=== PATIENT | female | born 1985 | race Caucasian/White ===

== ENCOUNTER 2021-03-25 14:49 | Emergency (ER) | payer OTHER, MEDICAID ==
[2021-03-25 15:06] VITALS: BP 161/98
[2021-03-25 15:44] LABS: BILIRUBIN,URINE NEGATIVE (NEGATIVE); GLUCOSE, URINE (UA) NEGATIVE (NEGATIVE); KETONES,URINE (UA) NEGATIVE (NEGATIVE); LEUKOCYTE ESTERASE, URINE NEGATIVE (NEGATIVE); NITRITE,URINE NEGATIVE (NEGATIVE); OCCULT BLOOD,URINE LARGE (NEGATIVE); PROTEIN,URINE 100 mg/dL (NEGATIVE); UROBILINOGEN,URINE 1 (NORMAL) E.U./dL (NORMAL)
[2021-03-25 15:50] LABS: CLARITY,URINE BLOODY (CLEAR)
[2021-03-25 16:01] LABS: HCG,QUALITATIVE BLOOD POSITIVE
[2021-03-25 16:16] LABS: BACTERIA,URINE Rare /HPF (None Seen); MUCUS,URINE Few Strands; RBC,URINE TNTC /HPF (0-5); SQUAMOUS EPITHELIAL CELL,UR MOD Squamous (<= Few)
--- NOTE | 2021-03-25 17:42 | Ultrasound Report ---
PROCEDURE: OB First Trimester INDICATIONS: 8 wks preg, bleed OUTSIDE/PRIOR DATING DATA: Last menstrual period (LMP): 01/22/2021.. LMP-based estimated date of delivery (TRINO): 10/31/2021. First dating scan (date and location): 03/25/19. Estimated date of delivery (TRINO) from first dating scan: Not applicable. TECHNIQUE: Real-time scanning was performed of the fetus and maternal pelvic organs, with image documentation. COMPARISON: None FINDINGS: Embryo: Anechoic focus noted in the endometrial cavity which may represent early intrauterine pregna ncy. Yolk sac is identified. No definite pole identified. Heart rate: Not detected Measurement variability in dating: +/- 4 weeks by LMP, +/- 7 days by mean sac diameter (use before 6 weeks gestation if crown-rump length not able to be measured), +/- 5 days by crown-rump length (6-12 weeks gestation). Maternal organs: Left ovary not visualized not evaluated. 1.9 cm thick-walled cyst noted in the right ovary may represent a corpus luteal cyst. IMPRESSION: Anechoic focus in the endometrial cavity which could represent gestational sac of early intrauterine , nonviable or occult ectopic . Recommend close clinical observation, cor relation with serial beta hCG and short-term follow-up obstetrical ultrasound in one week. Reviewed by: Marilee Wall MD, PhD on 03/25/2021 4:41 PM [facility] Approved by: Marilee Wall MD, PhD on 03/25/2021 4:41 PM [facility] Station ID: [id number]
--- NOTE | 2021-03-25 17:49 | Ultrasound Report ---
PROCEDURE: OB First Trimester INDICATIONS: 8 wks preg, bleed OUTSIDE/PRIOR DATING DATA: Last menstrual period (LMP): 01/22/2021.. LMP-based estimated date of delivery (TRINO): 10/31/2021. First dating scan (date and location): 03/25/19. Estimated date of delivery (TRINO) from first dating scan: Not applicable. TECHNIQUE: Real-time scanning was performed of the fetus and maternal pelvic organs, with image documentation. COMPARISON: None FINDINGS: Embryo: Anechoic focus noted in the endometrial cavity which may represent early intrauterine pregna ncy. Yolk sac is identified. No definite pole identified. Heart rate: Not detected Measurement variability in dating: +/- 4 weeks by LMP, +/- 7 days by mean sac diameter (use before 6 weeks gestation if crown-rump length not able to be measured), +/- 5 days by crown-rump length (6-12 weeks gestation). Maternal organs: Left ovary not visualized not evaluated. 1.9 cm thick-walled cyst noted in the right ovary may represent a corpus luteal cyst. IMPRESSION: Anechoic focus in the endometrial cavity which could represent gestational sac of early intrauterine , nonviable or occult ectopic . Recommend close clinical observation, cor relation with serial beta hCG and short-term follow-up obstetrical ultrasound in one week. Reviewed by: Marilee Wall MD, PhD on 03/25/2021 4:48 PM [facility] Approved by: Marilee Wall MD, PhD on 03/25/2021 4:48 PM [facility] Station ID: [id number]
--- NOTE | 2021-03-25 17:57 | ED Physician Documentation ---
History of Present Illness - Stated complaint Stated Complaint: FEMALE - Chief complaint Chief Complaint: General - History obtained from History obtained from: Patient - Additonal information Additional information: Patient comes to the emergency department with chief complaint of vaginal bleeding. She is around 8 weeks , she thinks, and states her last menstrual period was January 22. She states she had some cramping in her back when this first started 4 days ago, but is not having any pain now. She states she did has had very mild spotting that is mainly visible on the toilet paper when she wipes. She states she is barely getting any blood on the pad. The bleeding has not increased since it started initially. No clots. The patient states that her as far she knows has been healthy. She has not yet established with an CHROME POLISHER in the area. Patient has had 3 other pregnancies, 2 of which have gone to full-term, and 1 of which resulted in a first trimester miscarriage. Patient denies any other complaints at this time. Review of Systems Ten Systems: 10 systems reviewed and negative Constitutional: reports: Reviewed and negative Eyes: reports: Reviewed and negative Ears: reports: Reviewed and negative Nose: reports: Reviewed and negative Throat: reports: Reviewed and negative Cardiac: reports: Reviewed and negative Respiratory: reports: Reviewed and negative GI: reports: Reviewed and negative : reports: Vaginal bleeding, Now EGA Skin: reports: Reviewed and negative Musculoskeletal: reports: Reviewed and negative Neurologic: reports: Reviewed and negative Psychiatric: reports: Reviewed and negative Endocrine: reports: Reviewed and negative Immunocompromised: reports: Reviewed and negative PD PAST MEDICAL HISTORY - Allergies Allergies/Adverse Reactions: Allergies Allergy/AdvReac Type Severity Reaction Status Date / Time No Known Drug Allergies Allergy Verified 03/25/21 15:06 PD ED PE NORMAL - Vitals Vital signs reviewed: Yes - General General: Alert and oriented X 3, No acute distress, Well developed/nourished - HEENT HEENT: Atraumatic, PERRL, EOMI, Moist mucous membranes - Cardiac Cardiac: RRR, No murmur - Respiratory Respiratory: No respiratory distress, Clear bilaterally - Abdomen Abdomen: Soft, Non tender, Non distended - Female Female : Deferred - Derm Derm: Warm and dry - Extremities Extremities: No deformity - Neuro Neuro: Alert and oriented X 3 - Psych Psych: Normal mood, Normal affect Results - Vitals Vitals: Vital Signs - 24 hr 03/25/21 15:03 Temperature 36.7 C Heart Rate 77 Respiratory 14 Rate Blood Pressure 161/98 H O2 Saturation 100 Oxygen O2 Source Room air - Labs Labs: Laboratory Tests 03/25/21 03/25/21 03/25/21 15:16 15:18 15:25 Serum HCG, Qual POSITIVE HCG, Quant 16058.00 Urine Color RED/BLOODY Urine Clarity BLOODY Urine pH 7.0 Ur Specific [place] 1.025 Urine Protein 100 H Urine Glucose (UA) NEGATIVE Urine Ketones NEGATIVE Urine Occult Blood LARGE H Urine Nitrite NEGATIVE Urine Bilirubin NEGATIVE Urine Urobilinogen 1 (NORMAL) Ur Leukocyte Esterase NEGATIVE Urine RBC TNTC H Urine WBC 6-10 H Ur Squamous Epith Cells MOD Squamous H Urine Bacteria Rare Urine Mucus Few Strands Ur Microscopic Review INDICATED Urine Culture Comments NOT INDICATED - Rads (name of study) OB ultrasound Radiology: Prelim report reviewed, EMP read indepedently, See rad report (Gestational sac at just over 6 weeks age. No heartbeat detectable at this time. No adnexal masses. Corpus luteum cyst noted) PD MEDICAL DECISION MAKING - ED course Complexity details: reviewed results, re-evaluated patient, considered differential, d/w patient ED course: I discussed with the patient that her quantitative hCG is over 12,000 which is appropriate for her stage of . The patient's ultrasound shows a gestational sac just over 6 weeks without clear evidence of heartbeat with the fetus. At this point in time, I discussed with the patient that she will need serial studies to determine what is going on with her . It is possible that it is an early and needs more time to have a visible heart beat. As such, the patient should have a repeat ultrasound in no less than 1 week. I have also discussed with her that she may have a repeat hormone level in 3 days. The patient has been given contact information for women's clinic since she does not yet have her own [employer]ER. We have discussed the usual indications for return. Departure - Departure Disposition: 01 Home, Self Care Clinical Impression: Threatened miscarriage in early Condition: Stable Instructions: ED Miscarriage Poss Comments: Your hormones look good, and are at an appropriate level for the stage of uterine. Your ultrasound shows a sac in early findings of the fetus which are measuring around 6 weeks. No heartbeat was visible today. It is not clear whether this is because your is very early and needs more time to develop, or whether the has arrested and you are about to have a miscarriage. Only time will tell for sure. The 2 ways we evaluate this are to recheck your hormones serially and to repeat an ultrasound. Your hormone should be checked in 3 days or more from now to determine whether they are rising appropriately. Your ultrasound should be repeated in about 1 week to allow enough time for development of the fetus. Since you are still getting established with a an [employer]ER here, you are welcome to follow-up in our women's clinic here at would be if you wish. Otherwise, since we do know that your is in the uterus and that it is not a tubal , it is acceptable for you to just wait until you get established with your permanent [employer]OME POL[employer]ER. If you begin to bleed heavily and have cramping, then it is almost certainly a miscarriage.
== END 2021-03-25 18:33 | disposition home or self-care (01) ==
LOC: ED 14:49
DX: O20.0 Threatened abortion (principal); Z3A.01 Less than 8 weeks gestation of pregnancy
CPT/HCPCS: 36415; 81001; 81003; 84702; 84703; 87086; 99283; 99284

== ENCOUNTER 2021-03-26 14:20 | Emergency (ER) | payer OTHER, MEDICAID ==
[2021-03-26] MEDS ORDERED: HYDROcod/ACETAM 5/325 MG TABLET PO STA (14:41)
[2021-03-26] MEDS ORDERED: MORPHINE 2 MG/ML CARPUJECT IM STA (14:41)
--- NOTE | 2021-03-26 14:47 | ED Physician Documentation ---
History of Present Illness - Stated complaint Stated Complaint: ABD PX - Chief complaint Chief Complaint: Abd Pain - History obtained from History obtained from: Patient - History of Present Illness Pain level max: 8 Pain level now: 8 - Additonal information Additional information: Patient is a 35-year-old female who presents to the emergency department complaint of increasing vaginal bleeding and cramping since yesterday. She was seen here yesterday and diagnosed with likely miscarriage. She is scheduled to have a repeat hCG in 3 days and a repeat ultrasound in 1 week. She states today has increased pelvic cramping and increased bleeding. She did not take anything for pain prior to coming in. She states that she came in for pain control. No vomiting. No diarrhea. No constipation. Nothing makes it better or worse. Patient is a 4 para 2. Review of Systems Constitutional: denies: Fever, Chills GI: denies: Vomiting, Diarrhea Skin: denies: Rash Musculoskeletal: denies: Neck pain, Back pain Neurologic: denies: Headache PD PAST MEDICAL HISTORY - Past Medical History Past Medical History: No - Present Medications Home Medications: Ambulatory Orders Medication Instructions Recorded Confirmed HYDROcod/ACETAM 5/325 [[place] 5/325] 1 - 2 ea PO Q6H PRN #14 tablet 03/26/21 - Allergies Allergies/Adverse Reactions: Allergies Allergy/AdvReac Type Severity Reaction Status Date / Time morphine AdvReac Emesis Verified 03/26/21 14:58 - Living Situation Living Arrangement: reports: At home - Social History Does the pt have substance abuse?: No - Family History Family history: reports: Non contributory PD ED PE NORMAL - Vitals Vital signs reviewed: Yes - General General: Alert and oriented X 3, No acute distress, Well developed/nourished - HEENT HEENT: PERRL, Moist mucous membranes - Neck Neck: Supple, no meningeal sign - Cardiac Cardiac: RRR, Strong equal pulses - Respiratory Respiratory: No respiratory distress, Clear bilaterally - Abdomen Abdomen: Soft, Non tender, Non distended, Other (No peritoneal signs) - Derm Derm: Warm and dry - Extremities Extremities: No edema, No calf tenderness / cord - Neuro Neuro: Alert and oriented X 3 - Psych Psych: Normal mood, Normal affect Results - Vitals Vitals: Vital Signs - 24 hr 03/26/21 14:30 Temperature 37 C Heart Rate 81 Respiratory 20 Rate Blood Pressure 159/111 H O2 Saturation 99 Oxygen O2 Source Room air PD MEDICAL DECISION MAKING - ED course Complexity details: reviewed results, re-evaluated patient, considered differential, d/w patient ED course: Patient appears to be having a miscarriage. We will have her follow-up with her doctor for repeat hCG and repeat ultrasound in 1 week. The hCG should be done in about 3 days. Pain well controlled here. I am prescribing a short course of short-acting opioid pain medication for this patient. I have reviewed the patients ENGINE SETTER and no concerning findings were noted. I have discussed that the opioids are for short term therapy only, and will not be refilled from the ED. no evidence of ectopic . No peritoneal signs. Patient counseled regarding signs and symptoms for which I believe and urgent re-evaluation would be necessary. Patient with good understanding of and agreement to plan and is comfortable going home at this time This document was made in part using voice recognition software. While efforts are made to proofread this document, sound alike and grammatical errors may occur. Departure - Departure Disposition: 01 Home, Self Care Clinical Impression: Threatened miscarriage in early Condition: Good Instructions: ED Miscarriage Poss Follow-Up: [facility] [Provider Group] - Within 3 Days Prescriptions: HYDROcod/ACETAM 5/325 [[place] 5/325] 1 - 2 ea PO Q6H PRN #14 tablet PRN Reason: Pain Comments: You can use the Vicodin as needed for pain. Return if you worsen. Follow-up with your doctor for repeat hCG within 3 days. They may want to repeat an ultrasound next week as well. Return if your pain is not controlled. Your prescription was sent to [facility] in [place]. I am prescribing a short course of narcotic pain medication for you. These are potentially dangerous and addictive medications that should be used carefully. These medications may constipate you. Take an knky-lbk-xnidvms stool softener (docusate) twice daily with plenty of water while taking these medications. If you go 24 hours without a bowel movement, take [id number]-[id number] miralax, per package instructions. Do not drink or drive while taking these medications. If you received narcotic or sedating medications while in the emergency department, do not drive for 24 hours. Store this medication in a safe, secure place and out of reach of children. It is a violation of federal law to give or sell this medication to another person or to use in a manner other than prescribed. The ED will not refill narcotic prescriptions, including prescriptions lost or stolen. To dispose of unwanted medications: 1. [facility] at [address] in [place] has a medication drop box. They accept prescription medications (in pill form) Monday through Monday 9:00 a.m. to 5:00 p.m. 2. The [facility] [employer] accepts prescription medications (in pill form only) for disposal year round. Call for more information. 3. Contact the [facility] for the next [facility] sponsored prescription drug collection event. , [phone], or [phone];
[2021-03-26 15:31] VITALS: BP 149/100
== END 2021-03-26 15:31 | disposition home or self-care (01) ==
LOC: ED 14:20
DX: O20.0 Threatened abortion (principal); Z3A.01 Less than 8 weeks gestation of pregnancy
CPT/HCPCS: 99282; A9270

== ENCOUNTER 2021-03-27 07:51 | Emergency (ER) | payer OTHER, MEDICAID ==
--- NOTE | 2021-03-27 08:07 | ED Physician Documentation ---
PD HPI FEMALE - Stated complaint Stated Complaint: DIZZY/NAUSEA - Chief complaint Chief Complaint: Abd Pain - History obtained from History obtained from: Patient - History of Present Illness Timing - onset: How many days ago (5-6) Timing - duration: Days (5-6) Timing - details: Gradual onset (Onset of some crampy lower abdominal pain associated with some mild vaginal bleeding 5 to 6 days ago that has increased the last 2 days. Using 5-6 pads a day but also clots when she urinates and sits on the toilet. Crampy pain, severe at times.), Still present, Waxing and waning Associated symptoms: Pelvic pain, Vaginal bleeding. 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 Seen yesterday with cramps still.) Review of Systems Constitutional: denies: Fever, Chills Nose: denies: Rhinorrhea / runny nose, Congestion Throat: denies: Sore throat Respiratory: denies: Cough GI: reports: Abdominal Pain, Nausea. denies: Vomiting, Diarrhea : reports: LMP (8 weeks ago), Vaginal bleeding, Missed period. denies: Dysuria, Frequency, Discharge Neurologic: denies: Generalized weakness, Focal weakness, Numbness, Near syncope (but feeling lightheaded with standing.) PD PAST MEDICAL HISTORY - Past Medical History Cardiovascular: None Respiratory: None Neuro: Tremors Endocrine/Autoimmune: None - Present Medications Home Medications: Ambulatory Orders Medication Instructions Recorded Confirmed HYDROcod/ACETAM 5/325 [[place] 5/325] 1 - 2 ea PO Q6H PRN #14 tablet 03/26/21 Ondansetron Odt [Zofran] 4 mg TL Q6H PRN #15 tablet 03/27/21 - Allergies Allergies/Adverse Reactions: Allergies Allergy/AdvReac Type Severity Reaction Status Date / Time morphine AdvReac Emesis Verified 03/27/21 08:00 - Social History Does the pt smoke?: No Smoking Status: Never smoker Does the pt have substance abuse?: No PD ED PE NORMAL - Vitals Vital signs reviewed: Yes - General General: Alert and oriented X 3, Well developed/nourished - Cardiac Cardiac: RRR, No murmur - Respiratory Respiratory: Clear bilaterally - Abdomen Abdomen: Normal bowel sounds, Soft, Non distended, No organomegaly, Other (mild tender suprapubic area without rebound nor percussion tender. ) - Female Female : Deferred - Back Back: No CVA TTP - Derm Derm: Normal color, Warm and dry - Neuro Neuro: Alert and oriented X 3, No motor deficit, Normal speech Results - Vitals Vitals: Vital Signs - 24 hr 03/27/21 03/27/21 03/27/21 07:55 09:59 11:00 Temperature 36.5 C Heart Rate 77 66 69 Respiratory 17 19 16 Rate Blood Pressure 132/77 H 122/78 124/75 O2 Saturation 98 100 100 03/27/21 12:02 Temperature Heart Rate 73 Respiratory 19 Rate Blood Pressure 125/83 H O2 Saturation 98 Oxygen O2 Source Room air - Labs Labs: Laboratory Tests 03/27/21 03/27/21 03/27/21 09:02 09:02 09:02 WBC 5.3 RBC 4.15 L Hgb 11.6 L Hct 35.7 L MCV 86.0 MCH 28.0 MCHC 32.5 RDW 13.4 Plt Count 271 MPV 10.0 Neut # (Auto) 3.6 Lymph # (Auto) 1.[address] [place] # (Auto) 0.5 Eos # (Auto) 0.1 Baso # (Auto) 0.1 Absolute Nucleated RBC 0.00 Nucleated RBC % 0.0 Sodium 135 Potassium 3.9 Chloride 103 Carbon Dioxide 23 Anion Gap 9.0 BUN 12 Creatinine 0.7 Estimated GFR (MDRD) 96 Glucose 124 H Calcium 8.6 Total Bilirubin 0.6 AST 139 H ALT 113 H Alkaline Phosphatase 65 Total Protein 6.8 Albumin 3.9 Globulin 2.9 Albumin/Globulin Ratio 1.3 Lipase 23 HCG, Quant 6759.00 PD MEDICAL DECISION MAKING - ED course Complexity details: reviewed old records (U/S and labs from 2 days ago. Prior ED reports.), reviewed results (HCG down to 6K from 12 K over 2 days c/w nonviable . ), re-evaluated patient (opted for continued clinical treatment and not D&C at this point. ), considered differential, d/w patient, d/w sediment remediation consultant (Dr. Rivera DIRECTOR [employer] carton lettering machine operator, who came to ED and talked with the patient. ) Departure - Departure Disposition: 01 Home, Self Care Clinical Impression: Incomplete miscarriage, Lower abdominal pain Nausea & vomiting Qualifiers: Vomiting type: unspecified Qualified Code(s): R11.2 - Nausea with vomiting, unspecified Condition: Stable Instructions: ED Miscarriage Incom Follow-Up: Jared Rivera MD [Provider Admit Priv/Credential] - Prescriptions: Ondansetron Odt [Zofran] 4 mg TL Q6H PRN #15 tablet PRN Reason: Nausea / Vomiting Comments: Frequent fluids and maintain good hydration. Use some anti-inflammatory such as ibuprofen or naproxen 2-3 gvrv-nqs-[id number] tablets 3 times daily for the next several days to week. To that add Tylenol or pain medicines if needed. Use ondansetron if needed for nausea. Follow-up with DIRECTOR COUNCIL ON AGING if not resolved over the next several days and return if worsening. Discharge Date/Time: 03/27/21 12:05
[2021-03-27] MEDS ORDERED: ONDANSETRON 4 MG/2 ML VIAL IVP STA (08:19)
[2021-03-27] MEDS ORDERED: KETOROLAC 30 MG/ML VIAL IVP STA (08:20)
[2021-03-27] MEDS ORDERED: HYDROmorphone 0.5 MG/0.5 ML SYRINGE IVP STA (08:21)
[2021-03-27] MEDS ORDERED: SODIUM CHLORIDE 0.9% 1,000 ML IV STA (08:21)
[2021-03-27 09:10] LABS: BASOPHILS # (AUTO) 0.1 10^3/uL (0.0-0.1); BASOPHILS % (AUTO) 0.9 %; EOSINOPHILS # (AUTO) 0.1 10^3/uL (0.0-0.7); EOSINOPHILS % (AUTO) 2.2 %; HCT - HEMATOCRIT 35.7 % (37.0-47.0); HGB - HEMOGLOBIN 11.6 g/dL (12.0-16.0); LYMPHOCYTES # (AUTO) 1.1 10^3/uL (1.5-3.5); LYMPHOCYTES % (AUTO) 19.7 %; MEAN CORPUSCULAR HGB CONC 32.5 g/dL (32.0-36.0); MONOCYTES # (AUTO) 0.5 10^3/uL (0.0-1.0); MONOCYTES % (AUTO) 10.1 %; NEUTROPHILS # (AUTO) 3.6 10^3/uL (1.5-6.6); NEUTROPHILS % (AUTO) 66.7 %; PLT - PLATELET COUNT 271 10^3/uL (130-450); RED BLOOD COUNT 4.15 10^6/uL (4.20-5.40); RED CELL DISTRIBUTION WIDTH 13.4 % (12.0-15.0); WHITE BLOOD COUNT 5.3 x10^3/uL (4.8-10.8)
[2021-03-27 09:27] LABS: ALBUMIN 3.9 g/dL (3.2-5.5); ALBUMIN/GLOBULIN RATIO 1.3 (1.0-2.2); BILIRUBIN,TOTAL 0.6 mg/dL (0.2-1.0); CALCIUM 8.6 mg/dL (8.5-10.3); CREATININE 0.7 mg/dL (0.4-1.0); POTASSIUM 3.9 mmol/L (3.5-5.0); TOTAL PROTEIN 6.8 g/dL (6.7-8.2)
--- NOTE | 2021-03-27 11:44 | CONSULTATION NOTE ---
Surgery Consult - Consult Date Consult Date: 03/27/21 Requesting Provider: Dr. Parker - Chief Complaint Chief Complaint: Vaginal Bleeding - Home Meds/Allergies Allergies/Adverse Reactions: Allergies Allergy/AdvReac Type Severity Reaction Status Date / Time morphine AdvReac Emesis Verified 03/27/21 08:00 - Vital Signs Vital Signs: Last Vital Signs Temp 97.7 F 03/27/21 07:55 Pulse 69 03/27/21 11:00 Resp 16 03/27/21 11:00 BP 124/75 03/27/21 11:00 Pulse Ox 100 03/27/21 11:00 Intake & Output: Intake & Output 03/24/21 03/25/21 03/26/21 03/27/21 23:59 23:59 23:59 23:59 Intake Total 1000 Balance 1000 - Lab Results Result Diagrams: 03/27/21 09:02 03/27/21 09:02 - Consultation Note Consultation Note: Subjective: Patient is a 35-year-old presenting with vaginal bleeding that started 5 days ago. She was seen 2 days ago and again yesterday for vaginal bleeding. She had an hCG at that time of 12,896. Bleeding has been fairly consistent, but not saturating pads. She changes these due to comfort. She has intermittent pain, this was quite significant yesterday, this essentially subsided overnight, then picked up again this morning. Upon arrival to the ER, she has been doing much better, although she did receive 1 dose of hydromorphone approximately 4 hours ago. She has come to terms with her miscarriage, she says she knows that this is passing. She has had 1 prior D&C for a missed and wants to avoid interventions at this time. Not using contraception at this time, and is unsure what she wants, although hesitant about getting another IUD. OB history 1. 2007: Term , male, section 2. 2016: Missed with D&C 32020: Term , female, section Past medical history Pineal cyst Ovarian cyst Past surgical history section x2 Pineal cyst removal Laparoscopic cholecystectomy Family history Noncontributory Social history Denies Objective: Exam Constitutional: alert, no acute distress, well hydrated, well developed, well nourished, appropriate dress. Skin: normal turgor, normal color. Head: atraumatic, normocephalic. Cardiovascular: RRR. Respiratory: no respiratory distress. Abdomen: Soft, non tender Spine: normal mobility. Neurologic: normal, sensation intact, motor intact. Psych: affect and mood appropriate, normal interaction, good eye contact. Pelvic: Declined Labs: HCG 6,000 today down from 12,000 yesterday Assement and Plan: 35-year-old with a threatened . 1. Threatened -Likely inevitable, but declined pelvic exam today. -Declined medical or surgical intervention. -Discussed that with her ongoing bleeding and fall in HCG, this is almost certainly a failed , although I cannot say for certain. Too early for repeat ultrasound. She says she knows it is a miscarriage and is not worried about harming the at this point since it is resolving. -Will manage with ibuprofen for pain relief. -Has an appointment in approximately one week with [facility]. Can take urine test prior to this and she may be negative/ -[facility] to check in if unable to establish with [facility]. Provided patient with phone number. -bleeding precautions given. 2. Contraceptive counselling -Likely desires permanent sterility, but considering vasectomy vs tubal sterilization. 3. Rh negative -Partner also Rh negative. Declined need for rh prophylaxis. Likely unneeded this early in .
[2021-03-27 12:02] VITALS: BP 125/83
== END 2021-03-27 12:05 | disposition home or self-care (01) ==
LOC: ED 07:51
DX: O03.4 Incomplete spontaneous abortion without complication (principal); Z3A.01 Less than 8 weeks gestation of pregnancy; Z30.09 Encounter for other general counseling and advice on contraception; Z67.91 Unspecified blood type, Rh negative
CPT/HCPCS: 36415; 80053; 83690; 84702; 85025; 96361; 96374; 99283; 99284; J1170

== ENCOUNTER 2022-10-07 20:21 | Emergency (ER) | payer OTHER ==
[2022-10-07 20:29] VITALS: BP 160/90
--- NOTE | 2022-10-07 21:10 | ED Physician Documentation ---
History of Present Illness - Stated complaint Stated Complaint: LT FOOT SWOLLEN - Chief complaint Chief Complaint: Ext Problem - History obtained from History obtained from: Patient - Additonal information Additional information: HPI from patient. Patient complains of atraumatic left leg swelling and pain, paresthesias. Gradual onset since yesterday morning when she first noticed swelling limited to her foot and ankle. Over the ensuing timeframe, she has noted gradual spread of the swelling paresthesias to the level of her knee. Denies history of similar symptoms. Denies chest pain, shortness of breath. Does not use control, no recent long car/plane trips. Review of Systems Constitutional: denies: Fever Cardiac: denies: Chest pain / pressure Respiratory: denies: Dyspnea Skin: denies: Rash Musculoskeletal: reports: Extremity pain, Extremity swelling. 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" - Past Surgical History Past Surgical History: Yes General: Cholecystectomy /J[employer]CHITECT: section, Dilation and currettage - Allergies Allergies/Adverse Reactions: Allergies Allergy/AdvReac Type Severity Reaction Status Date / Time morphine AdvReac Emesis Verified 10/07/22 20:23 - Social History Does the pt smoke?: No Smoking Status: Former smoker Does the pt have substance abuse?: No PD ED PE NORMAL - Vitals Vital signs reviewed: Yes - General General: Alert and oriented X 3, No acute distress, Well developed/nourished - Derm Derm: Normal color, Warm and dry, No rash PD ED PE EXPANDED - Extremities Extremities: Pedal edema L (1+ pitting edema most prominent in left foot, ankle, distal left lower extremity) Results - Vitals Vitals: Oxygen O2 Source Room air - Rads (name of study) LLE doppler US Relevant Findings:: Prelim report reviewed, See rad report PD Medical Decision Making - ED course Complexity details: reviewed results, re-evaluated patient, considered differential, d/w patient ED course: Atraumatic LLE swelling, paresthesias. NVI on exam. LLE US without abnormality, specifically no evidence of DVT. She is in NAD; further emergent testing not indicated at this time. Results d/w patient, return precautions reviewed, advised to seek follow up with PMD for reevaluation. Departure - Departure Disposition: 01 Home, Self Care Clinical Impression: Peripheral edema Condition: Good Instructions: ED Leg Swelling Unilateral Comments: There were no abnormalities on tonight's ultrasound of your left leg; specifically, no evidence of blood clot (DVT). The cause of your leg swelling is not apparent at this time. Contact your primary care provider's office on Monday when they open to arrange for next available appointment for reevaluation; further testing, at your primary care provider's discretion, might be needed. Forms: PCP List Discharge Date/Time: 10/07/22 22:07
--- NOTE | 2022-10-07 22:56 | Ultrasound Report ---
PROCEDURE: Duplex Ext Veins Left INDICATIONS: LLE swelling TECHNIQUE: Real-time imaging, as well as color and pulse Doppler interrogation, were performed of the lower extr emity deep veins from the inguinal ligament to the popliteal fossa. COMPARISON: None. FINDINGS: The deep veins are normally compressible, and free of intraluminal thrombus. Color and pu lse Doppler demonstrate normal phasic intraluminal flow. There is normal augmentation response to di stal compression maneuver. IMPRESSION: 1. No evidence of deep venous thrombosis in the left lower extremity. Reviewed by: Edy Ghosh MD on 10/07/2022 10:55 PM PDT Approved by: Edy Ghosh MD on 10/07/2022 10:55 PM PDT Station ID: [id number]
== END 2022-10-07 22:07 | disposition home or self-care (01) ==
LOC: ED 20:21
DX: R60.0 Localized edema (principal); Z87.891 Personal history of nicotine dependence
CPT/HCPCS: 99283; 99284

== ENCOUNTER 2023-09-17 06:07 | Emergency (ER) | payer OTHER ==
[2023-09-17] MEDS: SODIUM CHLORIDE 0.9% 1,000 ML IV STA (06:30)
[2023-09-17 06:42] LABS: BASOPHILS % (AUTO) 0.8 %; EOSINOPHILS # (AUTO) 0.3 10^3/uL (0.0-0.7); HCT - HEMATOCRIT 37.1 % (37.0-47.0); HGB - HEMOGLOBIN 11.6 g/dL (12.0-16.0); LYMPHOCYTES # (AUTO) 1.1 10^3/uL (1.5-3.5); LYMPHOCYTES % (AUTO) 21.9 %; MEAN CORPUSCULAR HEMOGLOBIN 26.4 pg (27.0-31.0); MEAN CORPUSCULAR HGB CONC 31.3 g/dL (32.0-36.0); MEAN CORPUSCULAR VOLUME 84.5 fL (81.0-99.0); MEAN PLATELET VOLUME 10.4 fL (7.9-10.8); MONOCYTES # (AUTO) 0.4 10^3/uL (0.0-1.0); MONOCYTES % (AUTO) 9.1 %; PLT - PLATELET COUNT 271 10^3/uL (130-450); RED BLOOD COUNT 4.39 10^6/uL (4.20-5.40); WHITE BLOOD COUNT 4.8 x10^3/uL (4.8-10.8)
[2023-09-17 06:43] LABS: BILIRUBIN,URINE SMALL (NEGATIVE); GLUCOSE, URINE (UA) NEGATIVE (NEGATIVE); KETONES,URINE (UA) >=80 mg/dL (NEGATIVE); LEUKOCYTE ESTERASE, URINE TRACE (NEGATIVE); NITRITE,URINE NEGATIVE (NEGATIVE); OCCULT BLOOD,URINE TRACE-INTA (NEGATIVE); PROTEIN,URINE NEGATIVE (NEGATIVE); UROBILINOGEN,URINE 0.2 (NORMAL) E.U./dL (NORMAL)
[2023-09-17 06:48] LABS: CLARITY,URINE CLEAR (CLEAR)
[2023-09-17 06:49] LABS: HCG UR QUAL NEGATIVE
[2023-09-17 06:53] LABS: RBC,URINE 0-5 /HPF (0-5); WBC,URINE 0-3 /HPF (0-5)
[2023-09-17 06:54] LABS: BACTERIA,URINE None Seen /HPF (None Seen); SQUAMOUS EPITHELIAL CELL,UR MOD Squamous (<= Few)
[2023-09-17 07:00] LABS: ALBUMIN 4.3 g/dL (3.2-5.5); ALBUMIN/GLOBULIN RATIO 1.3 (1.0-2.2); BILIRUBIN,TOTAL 0.7 mg/dL (0.2-1.0); CALCIUM 9.7 mg/dL (8.5-10.3); CREATININE 0.7 mg/dL (0.6-1.3); POTASSIUM 3.9 mmol/L (3.5-4.5); TOTAL PROTEIN 7.7 g/dL (6.4-8.9)
--- NOTE | 2023-09-17 07:31 | ED Physician Documentation ---
PD HPI ABD PAIN - Stated complaint Stated Complaint: ABD PX/POST SURGERY - Chief complaint Chief Complaint: Abd Pain - History obtained from History obtained from: Patient - History of Present Illness Timing - onset: How many weeks ago (1) Timing - duration: Weeks (1) Timing - details: Gradual onset (had pain abd post surgery a week ago, which was expected, but has continued to same degree still. Was expecting a decrement in pain intensity. No fevers, wound infections, distention, nausea, diarrhea.), Still present Quality: Cramping, Aching, Pain Location: Epigastric, LUQ, LLQ Radiation: No: Chest, Left flank Worsened by: Moving, Palpation Associated symptoms: Nausea. 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 - Present Medications Home Medications: Ambulatory Orders Medication Instructions Recorded Confirmed Docusate Sodium 100Mg Capsule 100 mg PO DAILY #20 cap 09/17/23 [Colace 100Mg Capsule] Omeprazole Magnesium 20 mg PO QPM 09/17/23 09/17/23 Ondansetron Odt [Zofran Odt] 4 mg PO Q8HR PRN 09/17/23 09/17/23 Oxycodone HCl/Acetaminophen 1 each PO Q6H #20 tablet 09/17/23 [Percocet 10-325 mg Tablet] methocarbamoL [Methocarbamol] 500 mg PO QID PRN 09/17/23 09/17/23 oxyCODONE [Roxicodone] 5 mg PO Q8HR PRN 09/17/23 09/17/23 - Allergies Allergies/Adverse Reactions: Allergies Allergy/AdvReac Type Severity Reaction Status Date / Time morphine AdvReac Emesis Verified 09/17/23 06:20 - Social History Does the pt smoke?: No Smoking Status: Never smoker Does the pt drink ETOH?: No Does the pt have substance abuse?: No - Immunizations Immunizations are current?: Yes - POLST Patient has POLST: No PD ED PE NORMAL - Vitals Vital signs reviewed: Yes - General General: Alert and oriented X 3, Well developed/nourished, Other (appears in pain) - Neck Neck: Supple, no meningeal sign, No adenopathy - Cardiac Cardiac: RRR, No murmur - Respiratory Respiratory: No respiratory distress, Clear bilaterally - Abdomen Abdomen: Normal bowel sounds, Soft, Non distended, No organomegaly, Other (tender eepigastric and LUQ to left mid abd mainly. 6 laporoscope incision sites without signs of infection.) Results - Vitals Vitals: Vital Signs - 24 hr 09/17/23 09/17/23 09/17/23 06:12 06:30 10:10 Temperature 36.7 C Heart Rate 69 62 70 Respiratory 16 16 20 Rate Blood Pressure 145/82 H 130/83 H 148/95 H O2 Saturation 99 97 96 09/17/23 12:39 Temperature Heart Rate 68 Respiratory 16 Rate Blood Pressure 130/75 O2 Saturation 97 Oxygen O2 Source Room air - Labs Labs: Laboratory Tests 09/17/23 09/17/23 09/17/23 06:30 06:30 06:30 WBC 4.8 RBC 4.39 Hgb 11.6 L Hct 37.1 MCV 84.5 MCH 26.4 L MCHC 31.3 L RDW 15.0 Plt Count 271 MPV 10.4 Neut # (Auto) 3.0 Lymph # (Auto) 1.1 L Ware # (Auto) 0.4 Eos # (Auto) 0.3 Baso # (Auto) 0.0 Absolute Nucleated RBC 0.00 Nucleated RBC % 0.0 Sodium 138 Potassium 3.9 Chloride 102 Carbon Dioxide 25 Anion Gap 11.0 BUN 10 Creatinine 0.7 Estimated GFR (MDRD) 94 Glucose 81 Calcium 9.7 Total Bilirubin 0.7 AST 91 H ALT 196 H Alkaline Phosphatase 269 H Total Protein 7.7 Albumin 4.3 Globulin 3.4 Albumin/Globulin Ratio 1.3 Lipase 60 Urine Color YELLOW Urine Clarity CLEAR Urine pH 6.0 Ur Specific [place] 1.025 Urine Protein NEGATIVE Urine Glucose (UA) NEGATIVE Urine Ketones >=80 H Urine Occult Blood TRACE-INTA Urine Nitrite NEGATIVE Urine Bilirubin SMALL H Urine Urobilinogen 0.2 (NORMAL) Ur Leukocyte Esterase TRACE H Urine RBC 0-5 Urine WBC 0-3 Ur Squamous Epith Cells MOD Squamous H Urine Bacteria None Seen Ur Microscopic Review INDICATED Urine Culture Comments NOT INDICATED Urine HCG, Qual 09/17/23 06:30 WBC RBC Hgb Hct MCV MCH MCHC RDW Plt Count MPV Neut # (Auto) Lymph # (Auto) Ware # (Auto) Eos # (Auto) Baso # (Auto) Absolute Nucleated RBC Nucleated RBC % Sodium Potassium Chloride Carbon Dioxide Anion Gap BUN Creatinine Estimated GFR (MDRD) Glucose Calcium Total Bilirubin AST ALT Alkaline Phosphatase Total Protein Albumin Globulin Albumin/Globulin Ratio Lipase Urine Color Urine Clarity Urine pH Ur Specific [place] Urine Protein Urine Glucose (UA) Urine Ketones Urine Occult Blood Urine Nitrite Urine Bilirubin Urine Urobilinogen Ur Leukocyte Esterase Urine RBC Urine WBC Ur Squamous Epith Cells Urine Bacteria Ur Microscopic Review Urine Culture Comments Urine HCG, Qual NEGATIVE - Rads (name of study) abd/pelvic CT Relevant Findings:: Prelim report reviewed (no acute process. abd soft tissue with local areas of inflammation (presume the scope insertion sites). ), EMP independent interpretation of test PD Medical Decision Making - ED course Complexity details: reviewed results (abd/pelvic CT with IV and oral contrast did not show any acute process. No obstructions, free air nor fluid. Has abd soft tissue areas of inflammation that would be consistent with the laparoscopic insertions sites. ), re-evaluated patient (pain improved with IV meds here. Normal testing essentially. Can increase pain meds dosage.), considered differential (had gastric bypass surgery 1 week ago at [facility], without problems ecept post op pain left abd and mid abd, that has continued despite pain meds. Skin incisions healing okay. No fevers. Mild nausea. ), d/w patient Reviewed Lab Results: Normal WBC and lipase. Mild elevation ALT/AST/alk phos. She has had prior gallbladder removal. Not really hurting /tender RUQ area. UA clear. Departure - Departure Disposition: 01 Home, Self Care Clinical Impression: Status post gastric bypass for obesity, Abdominal pain, acute Condition: Stable Record reviewed to determine appropriate education?: Yes Instructions: ED Abdominal Pain Female Non-Specific Abdominal Pain Prescriptions: Docusate Sodium 100Mg Capsule [Colace 100Mg Capsule] 100 mg PO DAILY #20 cap Oxycodone HCl/Acetaminophen [Percocet 10-325 mg Tablet] 1 each PO Q6H #20 tablet Comments: Your CT scan did not show any obvious acute abnormality. They did notice areas of inflammation in the anterior abdominal wall which makes sense with your laparoscopic surgery and the healing wounds. No predominant area of inflammation and externally the wounds look good without signs of infection. The CT scan did not identify anything internally to look abnormal. No signs of leakage or infection or abscess. No signs of obstruction pattern. At this point we will assume pain from inflammation in the manipulation and just healing tissue. We can increase the dosage of your pain medicine. I would suggest being sure you are on a stool softener regularly so you do not get constipated with it. As a baseline and also take some Tylenol/acetaminophen 500 to 650 mg 4 times daily as you have been doing but be regular 4 times a day for the next week or so. Be in contact with your bariatric surgeon office this coming week. I sent your prescription to your preferred pharmacy, [facility]. I am prescribing a short course of narcotic pain medication for you. These are potentially dangerous and addictive medications that should be used carefully. These medications may constipate you. Take an [id number] stool softener such as docusate twice daily with plenty of water while taking these medications. If you go 24 hours without a bowel movement, take [id number] MiraLAX, per package instructions. Do not drink or drive while taking these medications. If you received narcotic or sedating medications while in the emergency department do not drive for 24 hours. Store this medication in a safe, secure place and out of reach of children. It is a violation of federal law to give or sell this medication to another person or to use in a manner other than prescribed. The ED will not refill narcotic prescriptions, including prescriptions lost or stolen. You can dispose of unwanted medications at the [facility] office or at several pharmacies such as [facility]. Forms: PCP List Discharge Date/Time: 09/17/23 12:42
[2023-09-17] MEDS ORDERED: DIATRIZOATE MEGLU/DIATRIZO SOD 30 ML BOTTLE PO ONE (07:49)
[2023-09-17] MEDS ORDERED: iohexoL-300 100 ML VIAL ONE (07:49)
[2023-09-17] MEDS: fentaNYL 100 MCG/2 ML VIAL IVP STA (07:57)
[2023-09-17] MEDS: DROPERIDOL 5 MG/2 ML VIAL IVP STA (09:15)
[2023-09-17] MEDS: iohexoL-300 100 ML VIAL IVP ONE (09:40)
[2023-09-17] MEDS: DIATRIZOATE MEGLU/DIATRIZO SOD 30 ML BOTTLE PO ONE (09:41)
--- NOTE | 2023-09-17 10:02 | CT Report ---
PROCEDURE: Abdomen/Pelvis W INDICATIONS: abd pain s/p gastric bypass; oral contrast too CONTRAST: 100ml omni 300 TECHNIQUE: Oral contrast was given in this patient. After the administration of intravenous contrast, a CT scan of the abdomen and pelvis was performed. Images were recorded and evaluated at appropriate window set tings. Reformats: coronal and sagittal. For radiation dose reduction, the following was used: automat ed exposure control, adjustment of mA and/or kV according to patient size. COMPARISON: None. FINDINGS: Image quality: Diagnostic. Lower chest: Unremarkable. Liver: No solid mass. Gallbladder: Cholecystectomy. Biliary tree: No intrahepatic or extrahepatic dilation, accounting for age. Spleen: The spleen is mildly enlarged, measuring 14 cm AP. Pancreas: No pancreatic ductal dilation. Adrenals: No adrenal nodule. Kidneys and ureters: No hydronephrosis. No renal cystic lesion which requires follow up. No solid mas s. Stomach, bowel and peritoneum: Bariatric surgery can be seen. Lymph nodes: No central or retroperitoneal adenopathy. Vessels: No infrarenal aortic aneurysm. Patent portal vein. PELVIS Reproductive organs: The uterus demonstrates an unremarkable appearance for age. No adnexal masses ar e seen. Bladder: No abnormal wall thickening, accounting for underdistention. Pelvic lymph nodes: No pelvic adenopathy by size criteria. Bones: No aggressive osseous abnormality. An L2 vertebral body hemangioma can be seen. Other: No significant ventral or inguinal hernia. Focal inflammatory change can be seen involving the subcutaneous fat of the anterior abdominal wall, left worse than right. This is best seen on series 2 image 95. IMPRESSION: Negative for small bowel obstruction. No significant bowel abnormality is seen. Inflammatory changes can be seen involving the anterior abdominal wall. Please correlate with patient history and physical examination findings. Additional findings: Cholecystectomy Bariatric surgery Mild splenomegaly L2 vertebral body hemangioma Reviewed by: Patrick Marlow MD on 09/17/2023 9:01 AM EDDIE Approved by: Patrick Marlow MD on 09/17/2023 9:01 AM EDDIE Station ID: [id number]
[2023-09-17] MEDS: HYDROmorphone 1 MG/ML CARPUJECT IVP STA (10:04)
[2023-09-17] MEDS: LACTATED RINGERS 1,000 ML IV STA (10:05)
[2023-09-17] MEDS: HYDROmorphone 0.5 MG/0.5 ML SYRINGE IVP STA (12:09)
[2023-09-17 12:43] VITALS: BP 130/75; O2SAT 97
== END 2023-09-17 12:42 | disposition home or self-care (01) ==
LOC: ED 06:07
DX: R10.13 Epigastric pain (principal); Z98.84 Bariatric surgery status; Z98.890 Other specified postprocedural states
CPT/HCPCS: 36415; 74177; 80053; 81001; 81025; 83690; 85025; 96374; 96375; 99284; J1170; J7120; Q9963; Q9967; 81003; 87086